=== PATIENT | female | born 1955 | race Caucasian/White ===

== ENCOUNTER 2017-03-23 20:10 | Observation (INO) | payer OTHER, MEDICAID ==
[2017-03-23] MEDS ORDERED: NS 1000 ML 1,000 ML IV SCH (21:00)
[2017-03-23 21:07] LABS: BASOPHILS # (AUTO) 0.1 X10^3/uL (0.0-0.1); BASOPHILS % (AUTO) 1.4 % (0.2-1.0); EOSINOPHILS # (AUTO) 0.2 x10^3/uL (0.0-0.2); EOSINOPHILS % (AUTO) 3.3 % (0.9-2.9); HEMATOCRIT 38.6 % (36.0-47.0); HEMOGLOBIN 13.6 g/dL (12.0-16.0); LYMPHOCYTES # (AUTO) 2.5 X10^3/uL (1.3-2.9); LYMPHOCYTES % (AUTO) 34.5 % (21.0-51.0); MEAN CORPUSCULAR HEMOGLOBIN 31.8 pg (27.0-34.0); MEAN CORPUSCULAR HGB CONC 35.3 g/dL (33.0-35.0); MEAN CORPUSCULAR VOLUME 89.9 fL (80.0-100.0); MEAN PLATELET VOLUME 7.3 fL (7.4-11.0); MONOCYTES # (AUTO) 0.6 x10^3/uL (0.3-0.8); MONOCYTES % (AUTO) 8.8 % (0.0-13.0); NEUTROPHILS # (AUTO) 3.8 x10^3/uL (2.2-4.8); PLATELET COUNT 326 X10^3/uL (150.0-450.0); RED BLOOD COUNT 4.29 X10^6/uL (3.5-5.4); RED CELL DISTRIBUTION WIDTH 12.8 % (11.6-16.5); WHITE BLOOD COUNT 7.4 X10^3/uL (3.6-10.0)
[2017-03-23 21:32] LABS: ALANINE AMINOTRANSFERASE 12 Units/L (12-78); ALKALINE PHOSPHATASE 106 Units/L (46-116); AMYLASE 56 Units/L (25-115); ASPARTATE AMINO TRANSFERASE 10 Units/L (15-37); BLOOD UREA NITROGEN 8 mg/dL (7-18); CALCIUM 8.4 mg/dL (8.5-10.1); CARBON DIOXIDE 27.3 mmol/L (21-32); CHLORIDE 96 mmol/L (98-107); CREATININE 0.63 mg/dL (0.55-1.02); FREE T4 (FREE THYROXINE) 1.21 ng/dL (0.76-1.46); LIPASE 136 Units/L (73-393); SODIUM 131 mmol/L (136-145); TOTAL PROTEIN 7.3 g/dL (6.4-8.2); TSH (3RD GENERATION) 1.646 uIU/mL (0.358-3.74); eGFR BLACK RACES > 60 (>60); eGFR NON BLACK RACES > 60 (>60)
[2017-03-23] MEDS: PROTONIX INJ 40 MG VIAL IVP SCH (21:55)
[2017-03-23] MEDS: NICOTINE PATCH TD SCH (21:55)
[2017-03-23 22:12] VITALS: BMI 23.6
[2017-03-23] MEDS ORDERED: MORPHINE SULFATE INJ 2 MG INJ IVP PRN (22:33)
[2017-03-23 23:02] LABS: BILIRUBIN,URINE NEGATIVE (NEGATIVE); BLOOD/HEMOGLOBIN,URINE NEGATIVE (NEGATIVE); GLUCOSE, URINE NEGATIVE (NEGATIVE); KETONES,URINE NEGATIVE (NEGATIVE); LEUKOCYTE ESTERASE ,URINE 1+ (NEGATIVE); NITRITES,URINE NEGATIVE (NEGATIVE); PROTEIN,URINE NEGATIVE (NEGATIVE); UROBILINOGEN,URINE 2+ (NORMAL)
[2017-03-23 23:07] LABS: APPEARANCE,URINE CLEAR (CLEAR); BACTERIA,URINE TRACE /HPF (NEGATIVE); COLOR,URINE DARK YELLOW (YELLOW); RBC,URINE 0-1 /HPF (NEGATIVE); SQUAMOUS EPITHELIAL CELL,UR NEGATIVE /HPF (NEGATIVE)
--- NOTE | 2017-03-24 | CT ---
CT abdomen and pelvis without contrast. Indication: Abdominal pain Technique: 5 mm axial images of the abdomen pelvis performed without IV contrast administration. Mayela nal and sagittal reformatted images were also provided. Findings: Lung bases are clear. Given limitations of a noncontrast examination no focal hepatic lesio n identified. The gallbladder is mildly distended however there is no calcified gallstone or perichol ecystic fluid. Bile ducts are normal in caliber. The spleen and pancreas along the adrenal glands are unremarkable given their noncontrast appearance. Round hypoattenuating lesion within the upper pole the right kidney and left kidney are consistent with cyst based on Hounsfield attenuation. However, t here is an approximate 6 mm increased attenuating lesion within the pole left kidney on axial image 2 3 which is indeterminate. There is a punctate nonobstructing stone within the lower pole the right ki dney. Neither kidney demonstrates evidence of hydronephrosis. Upper GI tract demonstrates no evidence of mass or obstruction. The rectum and colon are unremarkable . No pelvic free fluid or adenopathy. Abdominal aorta is normal in caliber with moderate calcified at herosclerotic disease. Review of bone windows demonstrates no acute osseous abnormality. Mild osteope jet. Postsurgical changes noted at L4-5. There is moderate dextroscoliosis of the lumbar spine apex c entered at L3-4. Impression: 1.Given the limitations of a noncontrast examination no acute inflammatory process identified within the abdomen or pelvis. 2. Small round increased attenuating lesion measuring approximately 6 mm within the upper pole of the left kidney is indeterminate, this likely represents a hyperdense cyst; however based on Hounsfield attenuation is indeterminate, correlation with nonemergent follow-up CT examination with and without contrast is recommended for further characterization. 3. Refer to above for multiple incidental findings. Reported By:
--- NOTE | 2017-03-24 06:14 | RAD ---
Examination: Portable AP chest History: Abdominal pain Findings: Normal heart size with clear lungs. There is no evidence for consolidation, pneumothorax or pleural fluid. Impression: No acute process demonstrated. Reported By:
[2017-03-24] MEDS ORDERED: SOMA TAB 350 MG PO STA (07:16)
[2017-03-24] MEDS ORDERED: SOMA TAB 350 MG PO PRN (07:51)
[2017-03-24] MEDS ORDERED: OXYCODONE HCL PO PRN (07:51)
[2017-03-24] MEDS ORDERED: [UNRECOGNIZED DRUG - OTHER] PO PRN (07:51)
[2017-03-24] MEDS ORDERED: ALBUTEROL SULFATE IH PRN (07:51)
[2017-03-24] MEDS ORDERED: FIORICET TAB PO PRN (07:51)
[2017-03-24] MEDS ORDERED: ACETAMINOPHEN PO PRN (07:51)
[2017-03-24] MEDS ORDERED: ZOFRAN INJ 4 MG VIAL IVP PRN (07:55)
[2017-03-24] MEDS ORDERED: PATIENT'S HOME MEDICATION (Budesonide-Formoterol 1 PUFF) IN SCH (08:00)
[2017-03-24] MEDS: MILK OF MAGNESIA PO SCH ×2 (08:00→09:57)
[2017-03-24] MEDS ORDERED: PERCOCET TAB 5/325 MG PO ONE (08:00)
[2017-03-24] MEDS: PROTONIX INJ 40 MG VIAL IVP SCH (08:00)
[2017-03-24] MEDS ORDERED: COLACE CAP 100 MG PO SCH (08:00)
[2017-03-24] MEDS ORDERED: PERCOCET TAB 5/325 MG PO PRN (08:57)
[2017-03-24] MEDS ORDERED: SINGULAIR TAB 10 MG PO SCH (09:00)
[2017-03-24] MEDS: NICOTINE PATCH TD SCH (09:45)
[2017-03-24 16:42] VITALS: BP 93/44
--- NOTE | 2017-03-24 17:46 | MRI ---
MRI OF THE LUMBAR SPINE WITHOUT IV CONTRAST CLINICAL INDICATION: Chronic back pain TECHNIQUE: Pre-contrast sagittal T1-, T2-, and T2-w fat-saturated images, and axial T1- and T2-w imag es of the lumbar spine. COMPARISON: CT abdomen pelvis previous day which covers the lumbar spine as well. FINDINGS: For purposes of this dictation, it is assumed that there are 5 [id number], lumbar-type vertebrae , and the most caudal fully segmented lumbar vertebra is labeled L5. There is straightening of the normal lumbar spine lordosis with mild dextroscoliosis. Status post L4- 5 fusion. Vertebral bodies are normal in height. There is a normal marrow signal pattern. Multilevel degenerative disc disease throughout the visualized lumbar spine. The conus medullaris terminates at a normal level and the nerve roots of the cauda equina appear normal. The included paraspinal soft ti ssues and retroperitoneal structures are grossly normal. Evaluation of the individual levels demonstrates: L1-2: Mild disc bulge without significant central stenosis or neural foraminal stenosis. L2-3: Circumferential disc bulge with mild central stenosis. L3-4: Circumferential disc bulge with [id number] central stenosis. High signal in the left-side d facet. Moderate right-sided neural foraminal stenosis. L4-5: Mild bilateral neural foraminal stenosis. L5-S1: Mild disc bulge without significant central stenosis. IMPRESSION: 1. Multilevel degenerative disc disease as above. Reported By:
[2017-03-24] MEDS ORDERED: PATIENT'S HOME MEDICATION (Quetiapine Fumarate [Quetiapine Fumarate Er] 50 MG) PO SCH (21:00)
== END 2017-03-24 18:15 | disposition home or self-care (01) ==
LOC: MED/SURG 20:10
PROVIDERS: ADMIT Internal Medicine; ATTEND Internal Medicine
DX: R10.84 Generalized abdominal pain (principal); M54.5 Low back pain; M51.36 Other intervertebral disc degeneration, lumbar region; M51.86 Other intervertebral disc disorders, lumbar region; M51.87 Other intervertebral disc disorders, lumbosacral region
CPT/HCPCS: 36415; 71010; 72148; 74176; 80053; 80307; 81001; 82150; 83690; 84439; 84443; 85025; 86140; A4222; C9113; G0378; G0434; J2270; J2405

== ENCOUNTER 2018-07-27 12:26 | Observation (INO) ==
--- NOTE | 2018-07-27 13:15 | DR.H&P ---
H&P - History & Physical for Day of: H&P Date: 07/27/18 - Chief Complaint Chief Complaint: Change in behavior. Daughter concerned for patient safety. - History of Present Illness History of Present Illness: The patient is a 62-year-old white female who presents to the office internal medicine with her daughter for reevaluation of medical problems. Daughter states that she's not able to leave her alone anymore. States that she sat a cup on the stove and turned it on. Then sat it on a towel and it was hot enough to burn through the towel and the wood table. Patient states she was trying to warm up her coffee. Daughter states yesterday she took one of her skirts, which is multiple sizes too large and then proceeded to Urinate in the floor. Daughter states she was 3 feet away from the commode. Daughter states this morning instead of taking a shower she got in the shower to wash her flip-flops. Daughter states she has been threatening to kill her stepmother who she accuses with sleeping with her son. Daughter states this is not true. Patient behavior is not baseline. Is more docile compared to argumentative. Was hyper mormon with staff. Daughter states she has to watch her due to have discovered she was buying pills. Daughter states she took 6 Xanax yesterday. Patient states I can send her to the [facility] again but will stay an hour. Patient is non complaint with taking medications. 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 Adverse Reaction (Verified 03/23/17 21:53) erythromycin base Adverse Reaction (Verified 03/23/17 21:53) medazepam Adverse Reaction (Verified 03/23/17 21:53) - Review of Systems Constitutional: Malaise Eyes: No Symptoms Reported ENT: No Symptoms Reported Respiratory: No Symptoms Reported Cardiovascular: No Symptoms Reported Gastrointestinal: No Symptoms Reported Genitourinary: No Symptoms Reported Musculoskeletal: Back Pain Skin: No Symptoms Reported Neurological: No Symptoms Reported - Physical Exam Vital Signs: Blood Pressure [Right Arm] 93/44 Blood Pressure [Left Arm] 93/52 Blood Pressure 93/44 Oriented: Normal Eyes: Normal Ear: Normal Nose: Normal Throat: Normal Respiratory: Wheezes Throughout Cardiovascular: Normal : Normal Auscultation: Bowel Sounds: Normal Palpation: Normal Tenderness: Normal Skin: Normal Musculoskeletal: Back:Lumbar Psychiatric: Other Mood Description: Calm, Flat Affect: Flat Speech Pattern: Clear - Assessment/Plan (1) Altered mental status Status: Acute Plan: Labs, Monitor mental status (2) Behavior safety risk Status: Acute Plan: 1013 with transfer to [facility] (3) Anxiety Status: Acute Plan: 1013 with transfer to [facility] - Allergies Allergies/Adverse Reactions: Allergies Allergy/AdvReac Type Severity Reaction Status Date / Time chrysanthemum dendranthema AdvReac Verified 03/23/17 21:53 erythromycin base AdvReac Verified 03/23/17 21:53 medazepam AdvReac Verified 03/23/17 21:53
[2018-07-27 14:58] VITALS: BMI 21.6
[2018-07-27 15:57] LABS: EOSINOPHILS # (AUTO) 0.1 x10^3/uL (0.0-0.2); HEMATOCRIT 38.5 % (36.0-47.0); HEMOGLOBIN 13.2 g/dL (12.0-16.0); LYMPHOCYTES # (AUTO) 1.4 X10^3/uL (1.3-2.9); LYMPHOCYTES % (AUTO) 28.1 % (21.0-51.0); MEAN CORPUSCULAR HEMOGLOBIN 29.5 pg (27.0-34.0); MEAN CORPUSCULAR HGB CONC 34.3 g/dL (33.0-35.0); MEAN CORPUSCULAR VOLUME 86.2 fL (80.0-100.0); MEAN PLATELET VOLUME 7.5 fL (7.4-11.0); MONOCYTES # (AUTO) 0.4 x10^3/uL (0.3-0.8); MONOCYTES % (AUTO) 7.7 % (0.0-13.0); NEUTROPHILS # (AUTO) 3.1 x10^3/uL (2.2-4.8); NEUTROPHILS % (AUTO) 62.2 % (42.0-75.0); PLATELET COUNT 223 X10^3/uL (150.0-450.0); RED BLOOD COUNT 4.46 X10^6/uL (3.5-5.4); RED CELL DISTRIBUTION WIDTH 14.1 % (11.6-16.5)
[2018-07-27 16:09] LABS: ALANINE AMINOTRANSFERASE 13 Units/L (12-78); ALKALINE PHOSPHATASE 81 Units/L (46-116); ASPARTATE AMINO TRANSFERASE 11 Units/L (15-37); BLOOD UREA NITROGEN 10 mg/dL (7-18); CALCIUM 8.4 mg/dL (8.5-10.1); CARBON DIOXIDE 29.4 mmol/L (21-32); CHLORIDE 93 mmol/L (98-107); COR CA(FOR HYPOALB) 9.2 mg/dL (8.5-10.1); CREATININE 0.71 mg/dL (0.55-1.02); MAGNESIUM 1.8 mg/dL (1.7-2.9); SODIUM 130 mmol/L (136-145); TOTAL PROTEIN 6.5 g/dL (6.4-8.2); eGFR NON BLACK RACES > 60 (>60)
--- NOTE | 2018-07-27 16:36 | RAD ---
History: CHF Study: Portable AP chest Comparison: March 23, 2017 Findings: There is relatively severe hyperinflation. There is mild chronic interstitial lung disease. The heart size is normal. There is no effusion or consolidation or atelectasis. Impression: Hyperinflation most consistent with COPD Reported By:
[2018-07-27 17:25] LABS: CKMB % 1.3 % (<4); CREATINE KINASE 77 Units/L (26-192); CREATINE KINASE MB < 1.0 ng/mL (0-4.0); TROPONIN I < 0.02 ng/mL (0-1.5)
[2018-07-27 23:12] LABS: CKMB % 1.3 % (<4); CREATINE KINASE 80 Units/L (26-192); CREATINE KINASE MB < 1.0 ng/mL (0-4.0); TROPONIN I < 0.02 ng/mL (0-1.5)
[2018-07-28] MEDS ORDERED: TYLENOL 325 MG TAB PO PRN (03:29)
[2018-07-28] MEDS ORDERED: TYLENOL 325 MG TAB PO ONE (04:03)
[2018-07-28 05:57] LABS: BASOPHILS % (AUTO) 0.4 % (0.2-1.0); EOSINOPHILS # (AUTO) 0.1 x10^3/uL (0.0-0.2); HEMATOCRIT 38.6 % (36.0-47.0); HEMOGLOBIN 13.4 g/dL (12.0-16.0); LYMPHOCYTES # (AUTO) 1.5 X10^3/uL (1.3-2.9); LYMPHOCYTES % (AUTO) 29.1 % (21.0-51.0); MEAN CORPUSCULAR HEMOGLOBIN 29.9 pg (27.0-34.0); MEAN CORPUSCULAR HGB CONC 34.7 g/dL (33.0-35.0); MEAN CORPUSCULAR VOLUME 86.3 fL (80.0-100.0); MEAN PLATELET VOLUME 7.9 fL (7.4-11.0); MONOCYTES # (AUTO) 0.4 x10^3/uL (0.3-0.8); MONOCYTES % (AUTO) 6.9 % (0.0-13.0); NEUTROPHILS # (AUTO) 3.2 x10^3/uL (2.2-4.8); NEUTROPHILS % (AUTO) 62.6 % (42.0-75.0); PLATELET COUNT 229 X10^3/uL (150.0-450.0); RED BLOOD COUNT 4.48 X10^6/uL (3.5-5.4); RED CELL DISTRIBUTION WIDTH 13.5 % (11.6-16.5); WHITE BLOOD COUNT 5.1 X10^3/uL (3.6-10.0)
[2018-07-28] MEDS ORDERED: HALDOL INJ ONE (06:20)
[2018-07-28 06:28] LABS: BLOOD UREA NITROGEN 8 mg/dL (7-18); CALCIUM 8.4 mg/dL (8.5-10.1); CARBON DIOXIDE 26.1 mmol/L (21-32); CHLORIDE 92 mmol/L (98-107); CREATINE KINASE 96 Units/L (26-192); CREATINE KINASE MB < 1.0 ng/mL (0-4.0); CREATININE 0.67 mg/dL (0.55-1.02); SODIUM 126 mmol/L (136-145); TROPONIN I < 0.02 ng/mL (0-1.5); eGFR NON BLACK RACES > 60 (>60)
[2018-07-28 07:47] VITALS: BP 138/70
== END 2018-07-28 10:10 ==
LOC: ICU
PROVIDERS: ADMIT Internal Medicine; ATTEND Internal Medicine
DX: F68.8 Other specified disorders of adult personality and behavior; J44.9 Chronic obstructive pulmonary disease, unspecified; Z91.89 Other specified personal risk factors, not elsewhere classified; R41.82 Altered mental status, unspecified; Z78.1 Physical restraint status; F41.8 Other specified anxiety disorders; R94.31 Abnormal electrocardiogram [ECG] [EKG]; M13.89 Other specified arthritis, multiple sites
CPT/HCPCS: 36415; 71010; 71045; 80048; 80053; 80307; 80320; 82550; 82553; 83735; 84484; 85025; 93005; 96374; A4222; G0378; G0434; G6040; J1630; J3490